=== PATIENT | male | born 1995 | race Caucasian/White ===

== ENCOUNTER 2017-02-14 08:59 | Emergency (ER) | payer BC ==
[~2017-02-14] VITALS: Ht 175.3 cm; Wt 59.1 kg
[2017-02-14 09:03] VITALS: TEMP 97.8
[2017-02-14] MEDS ORDERED: [UNRECOGNIZED DRUG - OTHER] TP (09:07)
[2017-02-14 09:53] LABS: BASO # 0.1 (0.0-0.2); BASO % 0.8 % (0.0-2.0); EOS # 0.1 (0.0-0.7); EOS % 1.7 % (0-4.0); GRAN # 3.3 (1.4-6.5); GRAN % 50.7 % (42.2-75.2); HEMATOCRIT 45.4 % (36.0-47.0); HEMOGLOBIN 15.8 g/dl (12.5-16.1); LYMPH # 2.7 (1.2-3.4); LYMPH % 40.9 % (20.0-51.0); MEAN CELL VOLUME 85 fl (80.0-95.0); MEAN CORPUSCULAR HEMOGLOBIN 29 pg (26.0-32.0); MEAN CORPUSCULAR HGB CONC 35 g/dl (33.0-37.0); MONO # 0.4 (0.1-0.6); MONO % 5.7 % (1.7-9.3); PLATELET COUNT 242 K/mm3 (130-400); RED BLOOD COUNT 5.37 M/mm3 (4.20-5.60); WHITE BLOOD COUNT 6.5 K/mm3 (4.8-10.8)
[2017-02-14 09:59] LABS: CALCIUM 10.1 mg/dL (8.4-10.2); CREATININE, serum 0.88 mg/dL (0.66-1.25); POTASSIUM 4.5 mmol/L (3.4-5.0)
[2017-02-14] MEDS ORDERED: ATIVAN 0.50.5 MG/TAB PO (10:35)
[2017-02-14 10:54] VITALS: BP 116/88; PULSE 79
== END 2017-02-14 10:56 | disposition home or self-care (01) ==
LOC: COL.ER 08:59
PROVIDERS: Physician Assistant
DX: F41.9 Anxiety disorder, unspecified (principal)

== ENCOUNTER 2018-10-26 17:59 | Emergency (ER) | payer BC ==
[~2018-10-26] VITALS: Ht 175.3 cm; Wt 58.6 kg
[~2018-10-26 17:59] MED LIST: ATIVAN 0.50.5 MG/TAB PO; [UNRECOGNIZED DRUG - OTHER] TP
[2018-10-26 18:05] VITALS: BP 133/71; TEMP 98.8
[2018-10-26 19:19] LABS: BASO # 0.1 (0.0-0.2); BASO % 0.7 % (0.0-2.0); EOS # 0.2 (0.0-0.7); EOS % 1.8 % (0-4.0); GRAN # 3.5 (1.4-6.5); GRAN % 41.7 % (42.2-75.2); HEMATOCRIT 43.3 % (42.0-52.0); HEMOGLOBIN 15.2 g/dl (13.5-18.0); LYMPH # 4.2 (1.2-3.4); LYMPH % 50.9 % (20.0-51.0); MEAN CELL VOLUME 83 fl (80.0-100.0); MEAN CORPUSCULAR HEMOGLOBIN 29 pg (27.0-31.0); MEAN CORPUSCULAR HGB CONC 35 g/dl (33.0-37.0); MEAN PLATELET VOLUME 10.5 fl (7.4-10.4); MONO # 0.4 (0.1-0.6); MONO % 4.7 % (1.7-9.3); PLATELET COUNT 264 K/mm3 (130-400); RED BLOOD COUNT 5.19 M/mm3 (4.20-5.60); REDCELL DISTRIBUTION WIDTH-CV 12.4 % (11.5-14.5)
[2018-10-26 19:23] LABS: ALBUMIN 4.8 gm/dL (3.5-5.0); BILIRUBIN,TOTAL 0.5 mg/dL (0.0-1.0); CALCIUM 9.9 mg/dL (8.4-10.2); CREATININE, serum 0.98 (0.66-1.25); TOTAL PROTEIN 8.1 gm/dL (6.4-8.2)
[2018-10-26 20:05] VITALS: PULSE 92
== END 2018-10-26 20:05 | disposition home or self-care (01) ==
LOC: COL.ER 17:59
PROVIDERS: Nurse Practitioner
DX: G43.909 Migraine, unspecified, not intractable, without status migrainosus (principal); Z88.1 Allergy status to other antibiotic agents; Z90.49 Acquired absence of other specified parts of digestive tract; Z90.89 Acquired absence of other organs
CPT/HCPCS: J1200; J1885; J2550; J2765